=== PATIENT | female | born 1975 | race Caucasian/White ===

== ENCOUNTER 2023-04-05 12:22 | Outpatient (CLI) | payer OTHER, SELFPAY | END 2023-04-05 12:23 | disposition home or self-care (01) | LOC: NFLDREF 04-06 14:36 | PROVIDERS: PCP Physician Assistant; Visit Provider Physician Assistant | DX: R10.9 Unspecified abdominal pain (principal) | CPT/HCPCS: 87086 ==

== ENCOUNTER 2023-06-25 14:33 | Emergency (ER) | payer OTHER, SELFPAY ==
[2023-06-25] VITALS (14 sets, daily range): BP systolic 97–124; BP diastolic 62–79; PULSE 66–72; RESP 16; TEMP 37.3; O2SAT 92–100; BMI 24.6
--- NOTE | 2023-06-25 15:29 | ED.CHESTPAIN ---
HPI - Chest Pain General Chief Complaint: Chest Pain Stated Complaint: chest pain Time Seen by Provider: 06/25/23 14:52 History of Present Illness HPI narrative: This 48-year-old woman comes in stating that she has felt off over the past couple weeks. She does describe an episode about 2 weeks ago where she noted on her smart watch that she had heart rate ranging between 110 and 155 when at rest or doing very light activity. She did not have any chest pain at this time but did have some nausea, lightheadedness, shortness of breath, and diaphoresis. She has not had any episodes exactly like that since then but states that she has felt off. She does regularly exercise and has no such symptoms when doing so. She does not have any cardiac risk factors. She does not use alcohol or smoke. She is not on any medicines except lamotrigine. Related Data Home Medications Medication Instructions Recorded Confirmed lamotrigine 150 mg tablet 150 mg PO DAILY 06/01/23 06/25/23 orphenadrine citrate 100 mg 100 mg PO BID PRN 06/01/23 06/25/23 tablet,extended release Allergies Allergy/AdvReac Type Severity Reaction Status Date / Time No Known Drug Allergies Allergy Verified 06/25/23 14:44 Review of Systems Status of ROS Reports: 10 or more systems reviewed and unremarkable except as noted in History and below Narrative Constitutional: No fevers, no weight gain or loss. Eyes: No discharge. No vision changes. HENT: No congestion, no sore throat, no ear pain. Cardiovascular: No chest pain, no palpitations. Episode of increased heart rate as described above. Respiratory: No shortness of breath, no wheezes, no cough. Gastrointestinal: No abdominal pain, no vomiting, no diarrhea. Genitourinary: No dysuria, no hematuria. Musculoskeletal: Normal range of motion. Skin: No rashes, no pruritis. Neurological: No dizziness, weakness, sensory change, speech change. Endo/Heme/Allergies: No bruising or bleeding. No polydipsia. Pysch: no suicidality, no anxiety, no insomnia. All other systems reviewed and are negative. [facility] Medical History (Updated 06/25/23 @ 16:43 by Benjamín Bueno MD) Strabismus in neuromuscular disorder ?H50.89 - Other specified strabismus (ICD-10) Surgical History (Updated 06/12/23 @ 04:40 by Erica Walker APRN, UNDERWRITING SUPPORT MANAGER) History of hysterectomy ?Z90.710 - Acquired absence of both cervix and uterus (ICD-10) History of bilateral oophorectomy ?Z90.722 - Acquired absence of ovaries, bilateral (ICD-10) Social History (Updated 06/12/23 @ 04:41 by Erica Walker APRN, UNDERWRITING SUPPORT MANAGER) Narrative: . 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 Non-smoker. No alcohol. No illicit drug use. Smoking Status: Never smoker How often do you have a drink containing alcohol: never AUDIT-C Alcohol total score: 0 Non-prescribed substance use: denies use Exam Narrative Exam Narrative: Constitutional: Well-developed, well-nourished, no acute distress. HEENT: Normocephalic, atraumatic. Neck: Normal range of motion. Nontender. Supple. Heart: Regular. No murmurs. Normal rate. Intact distal pulses. Lungs: Clear to auscultation. No chest discomfort. No wheezes, rhonchi, or rales. Abdomen: Normal bowel sounds. Nontender. No rebound tenderness. Genitalia: Deferred. Back: No midline tenderness. Normal range of motion. Extremities: Normal range of motion. No injury. Skin: Intact. No rash. Warm. No erythema or pallor. Neurologic: No altered sensation. No weakness. Alert and oriented. Psychiatric: No suicidality. No anxiety or depression. No insomnia. Nursing notes and vitals signs are reviewed. Const Vital Signs, click to edit/add: Vital Signs - 24 hr 06/25/23 14:45 06/25/23 15:01 06/25/23 15:02 Temperature 99.1 F Pulse Rate 66 67 Pulse Rate [Pulse Oximeter] 72 Respiratory Rate 16 Blood Pressure 115/67 110/78 Blood Pressure [Right Upper Arm] 124/79 Pulse Oximetry 100 97 100 Oxygen Delivery Method Room Air 06/25/23 15:03 06/25/23 15:15 06/25/23 15:30 Temperature Pulse Rate 67 66 70 Pulse Rate [Pulse Oximeter] Respiratory Rate Blood Pressure Blood Pressure [Right Upper Arm] Pulse Oximetry 100 100 92 Oxygen Delivery Method 06/25/23 15:32 Temperature Pulse Rate 69 Pulse Rate [Pulse Oximeter] Respiratory Rate Blood Pressure 113/77 Blood Pressure [Right Upper Arm] Pulse Oximetry 100 Oxygen Delivery Method Course Vital Signs Vital signs: Initial Vital Signs Temperature 99.1 F 06/25/23 14:45 Temperature Source Temporal Artery Scan 06/25/23 14:45 Pulse Rate 72 06/25/23 14:45 Pulse Rhythm Regular 06/25/23 14:45 Pulse Strength 3+ Normal 06/25/23 14:45 Respiratory Rate 16 06/25/23 14:45 Blood Pressure 124/79 06/25/23 14:45 Blood Pressure Mean 94 06/25/23 14:45 Blood Pressure Position Sitting 06/25/23 14:45 Pulse Oximetry 100 06/25/23 14:45 Oxygen Delivery Method Room Air 06/25/23 14:45 Vital Signs Temperature 99.1 F 06/25/23 14:45 Pulse Rate 72 06/25/23 14:45 Respiratory Rate 16 06/25/23 14:45 Blood Pressure 124/79 06/25/23 14:45 Pulse Oximetry 100 06/25/23 14:45 Oxygen Delivery Method Room Air 06/25/23 14:45 Temperature 99.1 F 06/25/23 14:45 Pulse Rate 69 06/25/23 15:32 Respiratory Rate 16 06/25/23 14:45 Blood Pressure 113/77 06/25/23 15:32 Pulse Oximetry 100 06/25/23 15:32 Oxygen Delivery Method Room Air 06/25/23 14:45 MDM - Chest Pain MDM Narrative Medical decision making narrative: This patient reports an episode of rapid heart rate about a couple weeks ago and states that she has felt can off since then. She arrives here with normal vital signs in her exam is completely normal. EKG also shows normal sinus rhythm without any sign of ST or T-wave changes. Additionally lab results returned with normal findings. Her troponin returns at 0. The patient does regularly exercise and has no associated symptoms when exerting herself. I did discuss various causes of increased heart rate and advised her regarding signs and symptoms that it would indicate a need for return and re-evaluation. I did also explain the role of a Holter monitor or Zio patch for further evaluation. Lab Data Labs: Lab Results 06/25/23 06/25/23 06/25/23 Range/Units 15:43 15:43 15:43 WBC 4.54 (4.50-11.00) K/uL RBC 4.63 (4.00-5.20) m/uL Hgb 13.0 (12.0-16.0) gm/dL Hct 38.7 (33.0-51.0) % MCV 84 (80-100) fL MCH 28 (26-34) pg MCHC 34 (32-36) gm/dL RDW Coeff of Anthony 13.0 (11.5-15.5) % Plt Count 344 (140-440) K/uL Neut % (Auto) 52.9 (42.0-72.0) % Lymph % (Auto) 37.9 (20-44) % [place] % (Auto) 7.5 (0.0-11.0) % Eos % (Auto) 1.1 (0.0-7.0) % Baso % (Auto) 0.4 (0.0-3.0) % Neut # (Auto) 2.40 (1.7-7.0) K/uL Lymph # (Auto) 1.72 (0.90-2.90) K/uL [place] # (Auto) 0.30 (0.00-0.90) K/UL Eos # (Auto) 0.05 (0.00-0.50) K/uL Baso # (Auto) 0.02 (0.00-0.30) K/uL Abs Immat Gran (auto) 0.01 (0.00-0.30) K/uL Imm/Tot Granulo (auto) 0.2 % Sodium Cancelled 140 Potassium Cancelled 4.0 Chloride Cancelled Carbon Dioxide Anion Gap BUN Creatinine Estimated Creat Clear Estimated GFR Glucose Calcium Magnesium (1.5-2.6) mg/dL C-Reactive Protein (0.5-1.0) mg/dL POC Troponin I (0.01-0.04) ng/ml 06/25/23 06/25/23 06/25/23 Range/Units 15:43 15:43 15:43 WBC (4.50-11.00) K/uL RBC (4.00-5.20) m/uL Hgb (12.0-16.0) gm/dL Hct (33.0-51.0) % MCV (80-100) fL MCH (26-34) pg MCHC (32-36) gm/dL RDW Coeff of Anthony (11.5-15.5) % Plt Count (140-440) K/uL Neut % (Auto) (42.0-72.0) % Lymph % (Auto) (20-44) % [place] % (Auto) (0.0-11.0) % Eos % (Auto) (0.0-7.0) % Baso % (Auto) (0.0-3.0) % Neut # (Auto) (1.7-7.0) K/uL Lymph # (Auto) (0.90-2.90) K/uL [place] # (Auto) (0.00-0.90) K/UL Eos # (Auto) (0.00-0.50) K/uL Baso # (Auto) (0.00-0.30) K/uL Abs Immat Gran (auto) (0.00-0.30) K/uL Imm/Tot Granulo (auto) % Sodium Potassium Chloride 108 Carbon Dioxide Cancelled 20 Anion Gap Cancelled 12 BUN Cancelled Creatinine Estimated Creat Clear Estimated GFR Glucose Calcium Magnesium (1.5-2.6) mg/dL C-Reactive Protein (0.5-1.0) mg/dL POC Troponin I (0.01-0.04) ng/ml 06/25/23 06/25/23 06/25/23 Range/Units 15:43 15:43 15:43 WBC (4.50-11.00) K/uL RBC (4.00-5.20) m/uL Hgb (12.0-16.0) gm/dL Hct (33.0-51.0) % MCV (80-100) fL MCH (26-34) pg MCHC (32-36) gm/dL RDW Coeff of Anthony (11.5-15.5) % Plt Count (140-440) K/uL Neut % (Auto) (42.0-72.0) % Lymph % (Auto) (20-44) % [place] % (Auto) (0.0-11.0) % Eos % (Auto) (0.0-7.0) % Baso % (Auto) (0.0-3.0) % Neut # (Auto) (1.7-7.0) K/uL Lymph # (Auto) (0.90-2.90) K/uL [place] # (Auto) (0.00-0.90) K/UL Eos # (Auto) (0.00-0.50) K/uL Baso # (Auto) (0.00-0.30) K/uL Abs Immat Gran (auto) (0.00-0.30) K/uL Imm/Tot Granulo (auto) % Sodium Potassium Chloride Carbon Dioxide Anion Gap BUN 14 Creatinine Cancelled 0.7 Estimated Creat Clear Cancelled 88.44 Estimated GFR Cancelled Glucose Calcium Magnesium (1.5-2.6) mg/dL C-Reactive Protein (0.5-1.0) mg/dL POC Troponin I (0.01-0.04) ng/ml 06/25/23 06/25/23 06/25/23 Range/Units 15:43 15:43 15:43 WBC (4.50-11.00) K/uL RBC (4.00-5.20) m/uL Hgb (12.0-16.0) gm/dL Hct (33.0-51.0) % MCV (80-100) fL MCH (26-34) pg MCHC (32-36) gm/dL RDW Coeff of Anthony (11.5-15.5) % Plt Count (140-440) K/uL Neut % (Auto) (42.0-72.0) % Lymph % (Auto) (20-44) % [place] % (Auto) (0.0-11.0) % Eos % (Auto) (0.0-7.0) % Baso % (Auto) (0.0-3.0) % Neut # (Auto) (1.7-7.0) K/uL Lymph # (Auto) (0.90-2.90) K/uL [place] # (Auto) (0.00-0.90) K/UL Eos # (Auto) (0.00-0.50) K/uL Baso # (Auto) (0.00-0.30) K/uL Abs Immat Gran (auto) (0.00-0.30) K/uL Imm/Tot Granulo (auto) % Sodium Potassium Chloride Carbon Dioxide Anion Gap BUN Creatinine Estimated Creat Clear Estimated GFR 107 Glucose Cancelled 98 Calcium Cancelled 10.1 Magnesium 2.1 (1.5-2.6) mg/dL C-Reactive Protein < 0.5 L (0.5-1.0) mg/dL POC Troponin I 0.00 L (0.01-0.04) ng/ml ECG Data Attestation: I personally reviewed and interpreted this ECG as follows: Interpretation: Normal sinus rhythm. Rate is 65 beats per minute. There are no ST or T-wave abnormalities. Discharge Plan Discharge Clinical Impression: Tachycardia, paroxysmal Patient Disposition: Home, Self-Care Condition: Stable Additional Instructions: Continue current plans. Activity as tolerated. Follow up with primary physician and consider a Holter monitor or Zio patch, especially if symptoms are recurrent. Prescriptions: No Action lamotrigine 150 mg tablet 150 mg PO DAILY orphenadrine citrate 100 mg tablet extended release 100 mg PO BID PRN Follow Up/Referrals: Erica Walker APRN, UNDERWRITING SUPPORT MANAGER [Primary Care Provider] - Stand Alone Forms: [employer] Info Instructions
[2023-06-25 15:53] LABS: Basophils Absolute Auto 0.02 K/uL (0.00-0.30); Basophils Percent Auto 0.4 % (0.0-3.0); Eosinophils Absolute Auto 0.05 K/uL (0.00-0.50); Eosinophils Percent Auto 1.1 % (0.0-7.0); Hematocrit 38.7 % (33.0-51.0); Immature Granulocytes Abs Auto 0.01 K/uL (0.00-0.30); Immature Granulocytes Pct Auto 0.2 %; Lymphocytes Absolute Auto 1.72 K/uL (0.90-2.90); Lymphocytes Percent Auto 37.9 % (20-44); Mean Corpuscular HGB Conc 34 gm/dL (32-36); Mean Corpuscular Hemoglobin 28 pg (26-34); Mean Corpuscular Volume 84 fL (80-100); Monocytes Percent Auto 7.5 % (0.0-11.0); Neutrophils Percent Auto 52.9 % (42.0-72.0); Platelet Count* 344 K/uL (140-440); Red Blood Count 4.63 m/uL (4.00-5.20); White Blood Count* 4.54 K/uL (4.50-11.00)
[2023-06-25 15:55] LABS: Slide Review Reflex No
[2023-06-25 16:10] LABS: Chloride* 108 mmol/L (96-114); Sodium* 140 mmol/L (135-149)
[2023-06-25 16:13] LABS: Creatinine* 0.7 mg/dL (0.5-1.5); Est. Creatinine Clearance* 88.44; Estimated Glomerular Filt Rate 107 ml/min
[2023-06-25 16:14] LABS: Anion Gap 12 mEq/L (7-15); Blood Urea Nitrogen* 14 mg/dL (5-24); Calcium* 10.1 mg/dL (8.4-10.6); Carbon Dioxide* 20 mmol/L (20-32); Glucose* 98 mg/dL (60-115); Magnesium* 2.1 mg/dL (1.5-2.6)
[2023-06-25 16:18] LABS: C Reactive Protein* < 0.5 mg/dL (0.5-1.0)
[2023-06-25 16:58] LABS: Thyroid Stimulating Hormone* 0.825 uIU/mL (0.270-4.20)
== END 2023-06-25 16:50 | disposition home or self-care (01) ==
PROVIDERS: Emergency Provider Emergency Medicine Emergency Medical Services; PCP Nurse Practitioner Family
DX: I47.9 Paroxysmal tachycardia, unspecified (principal)
CPT/HCPCS: 36415; 80048; 83735; 84443; 84484; 85025; 86140; 93005; 99284

== ENCOUNTER 2023-07-12 08:45 | Outpatient (CLI) | payer OTHER, SELFPAY | END 2023-07-12 08:46 | disposition home or self-care (01) | LOC: RAD 08:45 | PROVIDERS: PCP Nurse Practitioner Family; Visit Provider Nurse Practitioner Family | DX: I47.9 Paroxysmal tachycardia, unspecified (principal) | CPT/HCPCS: 93225; 93226 ==

== ENCOUNTER 2023-08-28 10:41 | Outpatient (CLI) | payer OTHER, SELFPAY ==
--- NOTE | 2023-08-28 11:30 | CRLHL7_ITS ---
For Patients: As a result of the Century Cures Act, medical imaging exams and procedure reports are released immediately into your electronic medical record. You may view this report before your referring provider. If you have questions, please contact your health care provider. BILATERAL SCREENING MAMMOGRAM WITH COMPUTER-AIDED DETECTION AND TOMOSYNTHESIS TECHNIQUE: CC and MLO views were obtained. These mammographic images have been obtained using full-field digital technique. These mammographic images were interpreted with the benefit of computer-aided detection. Breast Tomosynthesis was used in this interpretation. COMPARISON FILM: 07/04/22. FINDINGS: There are scattered areas of fibroglandular density IMPRESSION: There is no radiographic evidence for malignancy. ASSESSMENT: BI-RADS Category 2: Benign RECOMMENDATION: Routine screening mammogram in 1 year. A lay language report of this examination will be provided to the patient. Cooper Stinson M.D. Diagnostic Radiologist [email or web address] KRIS/Dictated by: Cooper Stinson MD @ 08/28/2023 11:42:00 AM (Electronically Signed)
== END 2023-08-28 10:42 | disposition home or self-care (01) ==
LOC: MAMMO 10:42
PROVIDERS: PCP Nurse Practitioner Family; Visit Provider Nurse Practitioner Family
DX: Z12.31 Encounter for screening mammogram for malignant neoplasm of breast (principal)
CPT/HCPCS: 77063; 77067

== ENCOUNTER 2023-09-12 09:49 | Outpatient (CLI) | payer OTHER, SELFPAY | END 2023-09-12 09:50 | disposition home or self-care (01) | PROVIDERS: PCP Nurse Practitioner Family; Visit Provider Internal Medicine | DX: R00.2 Palpitations (principal); I34.0 Nonrheumatic mitral (valve) insufficiency | CPT/HCPCS: 93306 ==

== ENCOUNTER 2024-10-28 09:39 | Outpatient (CLI) | payer OTHER, SELFPAY ==
--- NOTE | 2024-10-28 09:45 | CRLHL7_ITS ---
For Patients: As a result of the Cures Act, medical imaging exams and procedure reports are released immediately into your electronic medical record. You may view this report before your referring provider. If you have questions, please contact your health care provider. BILATERAL SCREENING MAMMOGRAM WITH COMPUTER-AIDED DETECTION AND TOMOSYNTHESIS TECHNIQUE: CC and MLO views were obtained. These mammographic images have been obtained using full-field digital technique. These mammographic images were interpreted with the benefit of computer-aided detection. Breast Tomosynthesis was used in this interpretation. COMPARISON FILM: 08/28/23, 07/04/22. FINDINGS: There are scattered areas of fibroglandular density. IMPRESSION: There is no radiographic evidence for malignancy. ASSESSMENT: BI-RADS Category 1: Negative RECOMMENDATION: Routine screening mammogram in 1 year. A lay language report of this examination will be provided to the patient. Vaughn Mota M.D. Diagnostic/Nuclear Medicine Radiologist [email or web address] ABDIEL/blue SP/Dictated by: Vaughn Mota MD @ 10/30/2024 9:08:00 AM (Electronically Signed)
== END 2024-10-28 09:40 | disposition home or self-care (01) ==
PROVIDERS: PCP Nurse Practitioner Family; Visit Provider Nurse Practitioner Family
DX: Z12.31 Encounter for screening mammogram for malignant neoplasm of breast (principal)
CPT/HCPCS: 77063; 77067

== ENCOUNTER 2024-12-25 14:51 | Outpatient (CLI) | payer OTHER, SELFPAY | END 2024-12-25 14:52 | disposition home or self-care (01) | LOC: KYNREF 14:51 | PROVIDERS: PCP Nurse Practitioner Family; Visit Provider Nurse Practitioner Family | DX: R35.0 Frequency of micturition (principal) | CPT/HCPCS: 81001; 87086 ==

== ENCOUNTER 2025-02-16 10:34 | Outpatient (CLI) | payer OTHER, SELFPAY | END 2025-02-16 10:35 | disposition home or self-care (01) | LOC: KYNREF 10:35 | PROVIDERS: PCP Nurse Practitioner Family; Visit Provider Nurse Practitioner Family | DX: N39.0 Urinary tract infection, site not specified (principal); B96.20 Unspecified Escherichia coli [E. coli] as the cause of diseases classified elsewhere | CPT/HCPCS: 87086 ==

== ENCOUNTER 2025-03-05 10:37 | Outpatient (CLI) | payer OTHER, SELFPAY | END 2025-03-05 10:38 | disposition home or self-care (01) | LOC: NFLDREF 03-10 07:59 | PROVIDERS: PCP Nurse Practitioner Family; Referring Provider Nurse Practitioner Family; Visit Provider Nurse Practitioner Family | DX: R39.9 Unspecified symptoms and signs involving the genitourinary system (principal) | CPT/HCPCS: 87086 ==

== ENCOUNTER 2025-03-17 07:53 | Outpatient (CLI) | payer OTHER, SELFPAY | END 2025-03-17 07:54 | disposition home or self-care (01) | LOC: NFLDREF 03-18 19:51 | PROVIDERS: PCP Nurse Practitioner Family; Referring Provider Nurse Practitioner Family; Visit Provider Nurse Practitioner Family | DX: Z13.21 Encounter for screening for nutritional disorder (principal); Z13.0 Encounter for screening for diseases of the blood and blood-forming organs and certain disorders involving the immune mechanism; Z13.6 Encounter for screening for cardiovascular disorders; Z13.228 Encounter for screening for other metabolic disorders | CPT/HCPCS: 80053; 80061; 82306 ==

== ENCOUNTER 2025-04-23 14:30 | Outpatient (CLI) | payer OTHER, SELFPAY ==
--- NOTE | 2025-04-23 15:00 | CRLHL7_ITS ---
For Patients: As a result of the Century Cures Act, medical imaging exams and procedure reports are released immediately into your electronic medical record. You may view this report before your referring provider. If you have questions, please contact your health care provider. DXA BONE MINERAL DENSITY STUDY Reason for exam: Screening for osteoporosis. Current height (in): 65. Weight (lb): 155. Menopause age: 32. Ethnicity: White. 1. Have you had a previous hip or vertebral fracture? No. 2. Have you had any fractures during your adult life which did not result from significant trauma (e.g., auto accident)? Yes. 3. Did either of your parents have a hip fracture? No. 4. Do you smoke? No. 5. Have you ever taken Glucocorticoids? No. 6. Do you have rheumatoid arthritis? No. 7. Do you have secondary osteoporosis? No. 8. Do you drink 3 or more alcoholic drinks per day? No. 9. Are you being treated for osteoporosis? No. 10. Have you ever taken any of the following medications: Actonel, Evista, Fosamax, Miacalcin, Reclast, Boniva, Forteo, HRT (i.e. estrogen/hormone therapy), Protelos, Prolia, Vitamin D, Calcium, other ??? please specify. ANSWER: Yes, Fosamax (i.e., alendronate) and calcium. 11. Do you have any of the following medical conditions: Anorexia or bulimia, asthma or emphysema, end stage renal disease, hyperparathyroidism, any seizure disorders, cancer, inflammatory bowel diseases, hysterectomy, other ??? please specify. ANSWER: Yes, hysterectomy. 12. What was your maximum height (inches)? 65. 13. Do you perform weight bearing exercise regularly? Yes. 14. Do you regularly consume dairy products? No. 15. Do you drink caffeinated beverages? No. 16. At what age did your period start? 15. 17. Are you premenopausal? No. 18. How many full-term pregnancies have you had? 1. 19. Have you ever missed your period for more than 6 months in a row (not including or menopause)? No. TECHNIQUE: Bone mineral density study was performed using the [employer]. FINDINGS: The results of the study expressed as bone mineral density (BMD) are as follows: Lumbar spine L1 to L4: BMD: 0.719 g/cm2. T-score: -3.0. Z-score: -2.2. Neck Left: BMD: 0.656 g/cm2. T-score: -1.7. Z-score: -1.0. Right: BMD: 0.632 g/cm2. T-score: -2.0. Z-score: -1.2. Total Left: BMD: 0.759 g/cm2. T-score: -1.5. Z-score: -1.0. Right: BMD: 0.777 g/cm2. T-score: -1.4. Z-score: -0.9. IMPRESSION: Osteoporosis. *Comparison exams done prior to 03/2020 were performed on different unit, Directa Plus. Cooper Stinson M.D. Diagnostic Radiologist [email or web address] ROLAND/irma solis/Dictated by: Cooper Stinson MD @ 04/24/2025 8:17:00 AM (Electronically Signed)
== END 2025-04-23 14:31 | disposition home or self-care (01) ==
LOC: RAD 14:30
PROVIDERS: PCP Nurse Practitioner Family; Visit Provider Nurse Practitioner Family
DX: Z13.820 Encounter for screening for osteoporosis (principal); M81.0 Age-related osteoporosis without current pathological fracture
CPT/HCPCS: 77080

== ENCOUNTER 2025-08-20 09:16 | Outpatient (CLI) | payer OTHER, SELFPAY ==
--- NOTE | 2025-08-20 11:14 | P.ANES_ITS ---
Anesthesia Charges Start Date/Time Anesthesia Start Date: 08/20/25 Anesthesia Start Time: 10:36 Stop Date/Time Anesthesia Stop Date: 08/20/25 Anesthesia Stop Time: 11:10 Coding CPT Codes CPT Codes: CHASTITY LWR INTST NDSC NOS - 85980 ([id number]) P2 - PATIENT W/MILD SYST DISEASE, QK - BARREL BRIDGE ASSEMBLER 2-4 CNCRNT ANES PROC
--- NOTE | 2025-08-20 11:14 | W.ANESCHARGE ---
Anesthesia Charges Start Date/Time Anesthesia Start Date: 08/20/25 Anesthesia Start Time: 10:36 Stop Date/Time Anesthesia Stop Date: 08/20/25 Anesthesia Stop Time: 11:10 Coding CPT Codes CPT Codes: CHASTITY LWR INTST NDSC NOS - 52900 ([id number]) P2 - PATIENT W/MILD SYST DISEASE, QK - CLERICAL ASSISTANT 2-4 CNCRNT ANES PROC
--- NOTE | 2025-08-20 11:28 | P.ANES_ITS ---
Anesthesia Charges Start Date/Time Anesthesia Start Date: 08/20/25 Anesthesia Start Time: 10:36 Stop Date/Time Anesthesia Stop Date: 08/20/25 Anesthesia Stop Time: 11:10 Coding CPT Codes CPT Codes: CHASTITY LWR INTST NDSC NOS - 90922 ([id number]) QK - APPLICATIONS SYSTEM ANALYST 2-4 CNCRNT CHASTITY PROC, QX - MARKETING AND OUTREACH COORDINATOR SVC W/ MD MED DIRECTION, P2 - PATIENT W/MILD SYST DISEASE
--- NOTE | 2025-08-20 11:28 | W.ANESCHARGE ---
Anesthesia Charges Start Date/Time Anesthesia Start Date: 08/20/25 Anesthesia Start Time: 10:36 Stop Date/Time Anesthesia Stop Date: 08/20/25 Anesthesia Stop Time: 11:10 Coding CPT Codes CPT Codes: CHASTITY LWR INTST NDSC NOS - 62744 ([id number]) QK - ELECTRIC SCREW DRIVER OPERATOR 2-4 CNCRNT CHASTITY PROC, QX - PERFORMANCE TESTER SVC W/ MD MED DIRECTION, P2 - PATIENT W/MILD SYST DISEASE
== END 2025-08-20 09:17 | disposition home or self-care (01) ==
LOC: OP CLINIC 09:16
PROVIDERS: PCP Nurse Practitioner Family; Visit Provider Surgery
DX: Z12.11 Encounter for screening for malignant neoplasm of colon (principal); D12.3 Benign neoplasm of transverse colon; Z83.719 Family history of colon polyps, unspecified
CPT/HCPCS: 00811; 00812; 45385; J2704